=== PATIENT | female | born 1955 | race African-American/Black ===

== ENCOUNTER 2018-07-29 08:28 | Day surgery (SDC) | payer OTHER ==
[2018-07-29] VITALS (8 sets, daily range): BP systolic 126–143; BP diastolic 70–77
[~2018-07-29] VITALS: Ht 157.5 cm; Wt 67.1 kg
--- NOTE | 2018-07-29 09:13 | Short Stay Surgery H&P ---
History of Present Illness History of Present Illness Chief Complaint Nausea and vomiting episodes/abdominal pains HPI Diamante Trevizo is a 63 year old female who was admitted on for nausea and vomiting episodes after eating Patient History Past Surgeries: (1) Status post spinal disc removal Review of Systems Cardiovascular: Reports: no symptoms Respiratory: Reports: no symptoms Skeletal: Reports: spinal disc disease Gastrointestinal: Reports: gastro esophageal reflux disease Genitourinary: Reports: no symptoms Neurologic: Reports: no symptoms Endocrine: Reports: no symptoms Hematologic: Reports: no symptoms Physical Exam Skin: normal HENT: normal Heart: normal Lungs: normal Abdomen: abnormal Extremities: normal Genitourinary: normal Plan Plan of Care Upper GI endoscopy with biopsy Preop Interventions None. Summary of Findings See the reports Attestation Are the patient's medical conditions optimized for surgery? Attestation Response: yes Clarke Pompa MD July 29, 2018 09:12
--- NOTE | 2018-07-29 09:14 | Pre-Procedure Note/Attestation ---
Pre-Procedure Note/Attestation Complete Prior to Procedure Planned Procedure: left Procedure Narrative: Examination of the upper GI tract via endoscopy and obtaining biopsy Indications for Procedure Pre-Operative Diagnosis: R/O Gastritis/Peptic ulcer/tumors. Attestation I attest that I discussed the nature of the procedure; its benefits; risks and complications; and alternatives (and the risks and benefits of such alternatives ), prior to the procedure, with the patient (or the patient's legal applications sales representative). I attest that, if there was a reasonable possibility of needing a blood transfusion, the patient (or the patient's legal applications sales representative) was given the [place] [employer] [facility] [employer] [facility] standardized written summary, pursuant to the Onofre Adena Blood Safety Act ([place] Health and Safety Code # 1645, as amended). I attest that I re-evaluated the patient just prior to the surgery and that there has been no change in the patient's H&P, except as documented below: Clarke Pompa MD July 29, 2018 09:14
[2018-07-29] MEDS ORDERED: METAMUCIL660 GM PO (09:23)
[2018-07-29] MEDS ORDERED: REGLAN10 MG ORAL (09:23)
[2018-07-29] MEDS ORDERED: CYMBALTA60 MG ORAL (09:23)
[2018-07-29] MEDS ORDERED: COLACE100 MG ORAL (09:23)
[2018-07-29] MEDS ORDERED: PROCHLORPERAZINE5 MG ORAL (09:23)
[2018-07-29] MEDS ORDERED: IBUPROFEN600 MG ORAL (09:23)
[2018-07-29] MEDS ORDERED: LYRICA75 M1 ORAL (09:23)
[2018-07-29] MEDS ORDERED: PROTONIX40 MG ORAL (09:23)
[2018-07-29] MEDS ORDERED: Propofol 200mg/20ml IV ONE (09:30)
[2018-07-29] MEDS ORDERED: LR 1000ml ONE (09:30)
--- NOTE | 2018-07-29 09:37 | Anethesia Preoperative Eval ---
Anesthesia Pre-op PMH/ROS General Date of Evaluation: July 29, 2018 Time of Evaluation: 09:00 ASA Score: ASA 2 Mallampati Score Class I : Soft palate, uvula, fauces, pillars visible Class II: Soft palate, uvula, fauces visible Class III: Soft palate, base of uvula visible Class IV: Only hard plate visible Mallampati Classification: Class II - m Allergies: Coded Allergies: ASPIRIN (Verified Allergy, Unknown, 07/29/18) PENICILLINS (Verified Allergy, Unknown, 07/29/18) Patient NPO?: Yes Anesthesia Pre-op Phys. Exam Physician Exam Last Vital Signs Date Time Temp Pulse Resp B/P (MAP) Pulse Ox O2 Delivery O2 Flow Rate FiO2 07/29/18 09:27 Room Air 07/29/18 09:17 97.4 63 18 129/70 96 Airway Exam Mallampati Score: Class II Ruth Bansal MD July 29, 2018 09:37
--- NOTE | 2018-07-29 09:42 | Endoscopy Procedure Note ---
Endoscopy Procedure Note General Indication for Procedure: Nausea and vomiting Procedures Performed: EGD - Minimal gastritis of the prepyloric area (antritis ) and bile in the gastric cavity, otherwise normal Upper GI. endoscopy. Biopsies obtained from gastric body and prepyloric sections. Specimen: yes Anesthesia Anesthesiologist: Dr. Bansal Anesthesia: moderate sedation Inserted Devices Implant(s) used?: No Quality Quality of Bowel Preparation: Excellent Was there any complications?: No GI Core Measures 50 yrs or older w/o bx or poly: Not Applicable 10yrs. F/U recommended: Not Applicable If not recommended, why?: Med reason:<3 yrs.: System Reason:<3 yrs.: Clarke Pompa MD July 29, 2018 09:42
--- NOTE | 2018-07-29 09:43 | Discharge Instructions ---
Discharge Instructions Discharge Instructions Follow up with: Please call the office for approval of followup visit For Congestive Heart Failure Reminder Report to your physician any weight gain of 5 pounds or more in one week. Clarke Pompa MD July 29, 2018 09:43
--- NOTE | 2018-07-29 09:57 | Immediate Post-Op Evaluation ---
Immediate Post-Op Evalulation Immediate Post-Op Evalulation Procedure: egd Date of Evaluation: July 29, 2018 Time of Evaluation: 09:57 Nausea: No Vomiting: No Ruth Bansal MD July 29, 2018 09:57
--- NOTE | 2018-07-29 10:51 | 48 Hour Post Anesthesia Eval ---
Post Anesthesia Evaluation Procedure: egd Date of Evaluation: July 29, 2018 Time of Evaluation: 10:51 Nausea: No Vomiting: No Ruth Bansal MD July 29, 2018 10:51
--- NOTE | 2018-07-29 16:15 | Pre-op HX & Phy Repo 2 SIG ---
DATE OF ADMISSION: 07/29/2018 This examination is being done preoperatively as it is necessary to evaluate the patient that she is physically fit for undergoing anesthesia medically. 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 At that time, the applicant was injured while working with the patient that she was trying to lift and she had injuries over her shoulder as well as dorsal lumbar area, which required surgery on the disc disease in the back area. She has been noticing that she does have nausea and vomiting, mostly after eating foods. She also has had some symptoms of gastroesophageal acid reflux, which is not that significant at this point. As such, she has, however, been treated with Protonix to control the acid secretions. There has been no any major diagnosis made at this time for the cause of her nausea and vomiting, though in the past she has had negative upper and lower GI endoscopic examination as she reported to me. However, that reports are not available to me physically. She denies having any difficulty swallowing at this point. There has been no history of vomiting blood or passing bright red blood per rectum, having black stools, etc. After her injury, she reported that she was seen by multiple physicians including orthopedic consultants that she is still being examined by and followed up for her care. She reports that she has been prescribed Compazine for the control of her nausea and vomiting, however. PAST MEDICAL HISTORY: Nonsignificant. She denies having high blood pressure, high cholesterol, diabetes, etc. PAST SURGICAL HISTORY: She has undergone dorsolumbar surgeries multiple occasions. ALLERGIES: She does have allergies to penicillin, chocolate, and aspirin. CHILDHOOD DISEASE: As usual. FAMILY HISTORY: Basically nonsignificant. HABITS: She denies smoking cigarettes and drinking alcohol. MEDICATIONS: Currently Metamucil, Protonix, Lyrica, and Colace. REVIEW OF SYSTEMS: Basically history of present illness and nonsignificant, though she does have some elements of depression. PHYSICAL EXAMINATION: GENERAL: Reveals alert and oriented, very pleasant female, who does not seem to be in acute distress. VITAL SIGNS: Blood pressure is 129/70, temperature 97.4, respiratory rate 18 per minute, and pulse rate 63 per minute. HEENT: Normocephalic. Pupils are equal in size and reactive to light and accommodation. No jaundice. Buccal cavity, tongue midline, well hydrated. No ulcers. NECK: Supple. No JVD, thyromegaly, or adenopathy. CHEST: Clear to auscultation and percussion. No rales or rhonchi. HEART: S1, S2 normal. Regular rhythm. No gallops or murmur. ABDOMEN: Soft. There is minimal tenderness, however, there is no hepatosplenomegaly. No palpable mass. Bowel sounds are present. EXTREMITIES: Within normal limits. CENTRAL NERVOUS SYSTEM: Within normal limits. INITIAL PREOPERATIVE IMPRESSION: 1. History of continuous nausea and vomiting spells of uncertain etiology, rule out gastric outlet obstruction, rule out gastric pathology, rule out underlying gastroparesis with abnormal gastric motility. 2. History of bodily injury, work-related. RECOMMENDATIONS: Applicant seems to be quite stable at this time to undergo the procedure of upper GI endoscopy for which she has been scheduled. She understands the risks and benefits and will sign the consent. Said Tai Pompa DR: KIARA JOB#: [id number] CC:
--- NOTE | 2018-07-29 16:30 | Operative Note - Dictated ---
DATE OF OPERATION: 07/29/2018 SURGEON: Clarke Pompa M.D. PROCEDURE: Esophagogastroduodenoscopy with biopsy. PREOPERATIVE DIAGNOSES: Persistent nausea, vomiting, abdominal pain, heartburn. POSTOPERATIVE DIAGNOSES: 1. Evidence of bile in the stomach consistent with duodenal gastric bile reflux. 2. Minimal inflammatory process in the antrum consistent with mild antritis. Biopsy was taken from the antrum and gastric body. MEDICATION USED: Per Dr. Bansal, anesthesiologist. INSTRUMENT: GIF Olympus upper GI videoendoscope. DESCRIPTION OF PROCEDURE: The patient after arriving in the endoscopy unit, was told about risks and benefits of the procedure which she accepted and signed informed consent. At this time, she was put on the left lateral decubitus position. After adequate IV sedation, the scope was gently passed through the cricopharyngeal area, was lodged into the upper esophagus, and gradually advanced towards gastroesophageal junction. The entire length of esophagus looked normal. No evidence of varices, inflammatory process, ulceration, or stricture etc. was found. GE junction also looked normal without any evidence of hiatal hernia or Cox's mucosa. At this time, the scope was advanced into the stomach. Gastric cavity was distended with insufflation of air. It revealed that there was moderate amount of bile in the stomach consistent with duodenal gastric bile reflux. However, the underlying mucosa in the gastric body looked normal except that there were evidence of mild inflammatory process in the antrum and particularly pre-pyloric area, but no ulceration noted. There was no any obstruction, tumor, or polyps in the stomach or pyloric area. A retroflexion maneuver was applied here at this point. GE junction also looked normal retrograde fashion. At this point, one biopsy from gastric body and the other one from prepyloric area was obtained and subsequently the scope was passed through normal looking pylorus. First and second portion of duodenum were also found to be completely normal. At this point, the scope was pulled out. The procedure was terminated. The patient tolerated the procedure well, left the endoscopy room in a good condition. FINAL POSSIBLE DIAGNOSIS: Gastroparesis?. Clarke Pompa M.D. DR: CHUCK JOB#: [id number] CC:
== END 2018-07-29 11:05 | disposition home or self-care (01) ==
LOC: GAS 08:28
DX: R11.2 Nausea with vomiting, unspecified (principal); R10.9 Unspecified abdominal pain; K29.70 Gastritis, unspecified, without bleeding; B96.81 Helicobacter pylori [H. pylori] as the cause of diseases classified elsewhere; R12 Heartburn; Z88.0 Allergy status to penicillin; Z88.6 Allergy status to analgesic agent; Z91.018 Allergy to other foods; Z79.899 Other long term (current) drug therapy; K21.9 Gastro-esophageal reflux disease without esophagitis
CPT/HCPCS: 43239; J2704; 94003; 94150